=== PATIENT | male | born 1980 | race Caucasian/White ===

== ENCOUNTER 2023-02-07 14:42 | Emergency (ER) | payer SELFPAY ==
[2023-02-07] MEDS ORDERED: Sodium Chloride 0.9% 10 ML Syringe FLUSH PRN (15:26)
[2023-02-07] MEDS ORDERED: HYDROmorphone 0.5 MG/0.5 ML Syringe IVPUSH ONE (16:03)
[2023-02-07] MEDS ORDERED: Sodium Chloride 0.9% 1,000 ML IV STA (16:03)
[2023-02-07] MEDS ORDERED: Ondansetron 4 MG/2 ML SDV IVPUSH ONE (16:03)
[2023-02-07 16:06] LABS: BASOPHILS ABSOLUTE AUTO 0.02 K/mm3 (0.01-0.08); BASOPHILS PERCENT AUTO 0.2 % (0.1-1.2); EOSINOPHILS ABSOLUTE AUTO 0.08 K/mm3 (0.04-0.54); EOSINOPHILS PERCENT AUTO 0.9 (0.8-7.0); HEMATOCRIT 47.8 % (40.1-51.0); HEMOGLOBIN 16.4 gm/dl (13.7-17.5); IMMATURE GRAN ABSOLUTE AUTO 0.02 K/mm3 (0.00-0.10); IMMATURE GRAN PERCENT AUTO 0.2 % (<=1.0); LYMPHOCYTES ABSOLUTE AUTO 1.87 K/mm3 (1.32-3.57); LYMPHOCYTES PERCENT AUTO 20.5 % (21.8-53.1); MEAN CORPUSCULAR HEMOGLOBIN 29.2 pg (25.7-32.2); MEAN CORPUSCULAR HGB CONC 34.3 g/dl (32.2-35.5); MEAN CORPUSCULAR VOLUME 85.1 fl (79.0-92.2); MEAN PLATELET VOLUME 10.8 fl (9.4-12.3); MONOCYTES ABSOLUTE AUTO 0.72 K/mm3 (0.30-0.82); MONOCYTES PERCENT AUTO 7.9 % (5.3-12.2); NEUTROPHILS ABSOLUTE AUTO 6.39 K/mm3 (1.78-5.38); NEUTROPHILS PERCENT AUTO 70.3 % (34.0-67.9); PLATELET COUNT,PLT 207 K/mm3 (163-337); RED BLOOD CELL COUNT 5.62 M/mm3 (4.63-6.08)
[2023-02-07] MEDS ORDERED: Iopamidol 612 MG/ML 30 ML SDV IVPUSH ONE (16:17)
[2023-02-07] MEDS ORDERED: Iopamidol 612 MG/ML 100 ML Bottle IVPUSH ONE (16:17)
[2023-02-07] MEDS ORDERED: Sodium Chloride 0.9% 10 ML Syringe FLUSH ONE (16:17)
[2023-02-07 16:32] LABS: A/G RATIO 1.3 (1-2); ALBUMIN 4.1 g/dl (3.4-5.0); ANION GAP 11.5 (5-15); BILIRUBIN TOTAL 0.5 mg/dL (0.2-1.0); C-REACTIVE PROTEIN 0.2 mg/dL (<1.0); CALCIUM 8.9 mg/dL (8.5-10.1); EST CRCL DRUG DOSING (CG) 102.49 mL/min; POTASSIUM,K 3.5 mEq/L (3.5-5.1); PROTEIN TOTAL,TP 7.3 g/dl (6.4-8.2)
[2023-02-07 18:11] LABS: APPEARANCE,URINE CLEAR (Clear); BILIRUBIN,URINE NEGATIVE (Negative); COLOR,URINE YELLOW (Yellow); GLUCOSE,URINE NEGATIVE (Negative); KETONES,URINE NEGATIVE (Negative); LEUKOCYTE ESTERASE,URINE NEGATIVE (Negative); NITRITE,URINE NEGATIVE (Negative); OCCULT BLOOD,URINE NEGATIVE (Negative); PROTEIN,URINE 1+ (Negative)
[2023-02-07 18:19] LABS: AMORPHOUS SEDIMENT,URINE FEW /hpf (NOT SEEN); BACTERIA,URINE FEW /hpf (FEW); MUCUS,URINE FEW /hpf (FEW); RBC,URINE 0-5 /hpf (0-5); SQUAMOUS EPITHELIAL CELLS,UR 0-5 /hpf (0-5); WBC,URINE 0-5 /hpf (0-5)
== END 2023-02-07 18:45 | disposition home or self-care (01) ==
LOC: JD.ED 14:42
DX: R10.9 Unspecified abdominal pain (principal); F17.210 Nicotine dependence, cigarettes, uncomplicated; Z88.8 Allergy status to other drugs, medicaments and biological substances
CPT/HCPCS: 36415; 74177; 80053; 81001; 83690; 85025; 86140; 96374; 96375; 99284; J1170; J2405; J3490; J7030; Q9967

== ENCOUNTER 2023-02-18 15:02 | Emergency (ER) | payer SELFPAY ==
[2023-02-18] MEDS ORDERED: HYDROmorphone 1 MG/ML Syringe IM ONE (16:06)
== END 2023-02-18 16:30 | disposition home or self-care (01) ==
LOC: JD.ED 15:02
DX: S22.42XA Multiple fractures of ribs, left side, initial encounter for closed fracture (principal); F17.210 Nicotine dependence, cigarettes, uncomplicated; Z79.899 Other long term (current) drug therapy; Z88.8 Allergy status to other drugs, medicaments and biological substances; W19.XXXA Unspecified fall, initial encounter
CPT/HCPCS: 71101; 73030; 96372; 99283; J1170

== ENCOUNTER 2023-02-23 09:51 | Day surgery (SDC) | payer SELFPAY ==
[~2023-02-23 09:51] MED LIST: Sodium Chloride 0.9% 10 ML Syringe FLUSH PRN; Sodium Chloride 0.9% 10 ML Syringe FLUSH SCH
[2023-02-23] MEDS: Lactated Ringers 1,000 ML IV SCH ×2 (10:25→14:31)
[2023-02-23] MEDS ORDERED: Ondansetron 4 MG/2 ML SDV IVPUSH PRN ×2 (13:15→14:25)
[2023-02-23] MEDS ORDERED: Midazolam 1 MG/ML 2 ML SDV ONE (13:29)
[2023-02-23] MEDS ORDERED: Propofol 200 MG/20 ML SDV ONE ×2 (13:30→13:32)
[2023-02-23] MEDS ORDERED: Lidocaine 1% 2 ML ONE (13:30)
[2023-02-23] MEDS ORDERED: Bupivacaine 0.5% 10 ML SDV ONE (14:14)
[2023-02-23] MEDS ORDERED: Bupivacaine 0.5% 30 ML SDV ONE (14:15)
[2023-02-23] MEDS ORDERED: Ketamine 500 mg/10 ML MDV ONE (14:32)
== END 2023-02-23 16:10 | disposition home or self-care (01) ==
LOC: JD.SDS 09:51
PROVIDERS: ATTEND Surgery
DX: K29.50 Unspecified chronic gastritis without bleeding (principal); K20.90 Esophagitis, unspecified without bleeding; K44.9 Diaphragmatic hernia without obstruction or gangrene; K22.89 Other specified disease of esophagus; F41.9 Anxiety disorder, unspecified; F17.210 Nicotine dependence, cigarettes, uncomplicated; R00.2 Palpitations; F12.10 Cannabis abuse, uncomplicated; F14.10 Cocaine abuse, uncomplicated; Z88.8 Allergy status to other drugs, medicaments and biological substances; Z79.899 Other long term (current) drug therapy
CPT/HCPCS: 43239; J2250; J2704; J3490; J7120; 00813

== ENCOUNTER 2023-05-09 22:02 | Emergency (ER) | payer SELFPAY ==
[2023-05-09 23:29] LABS: BASOPHILS PERCENT AUTO 0.3 % (0.0-1.0); EOSINOPHILS ABSOLUTE AUTO 0.2 K/mm3 (0.0-0.4); EOSINOPHILS PERCENT AUTO 1.7 % (0.0-6.0); HEMATOCRIT 52.8 % (42.0-52.0); HEMOGLOBIN 18.2 gm/dl (14.0-18.0); IMMATURE GRAN ABSOLUTE AUTO 0.02 K/mm3 (0.00-0.05); IMMATURE GRAN PERCENT AUTO 0.2 % (0.0-0.4); LYMPHOCYTES PERCENT AUTO 32.2 % (24.0-44.0); MEAN CORPUSCULAR HEMOGLOBIN 29.4 pg (28.0-32.0); MEAN CORPUSCULAR HGB CONC 34.5 g/dl (32.0-36.0); MEAN CORPUSCULAR VOLUME 85.4 fl (83.0-99.0); MEAN PLATELET VOLUME 9.9 fl (9.4-12.4); MONOCYTES ABSOLUTE AUTO 0.7 K/mm3 (0.0-0.8); MONOCYTES PERCENT AUTO 7.9 % (0.0-8.0); NEUTROPHILS ABSOLUTE AUTO 5.4 K/mm3 (1.8-7.7); NEUTROPHILS PERCENT AUTO 57.7 % (41.0-71.0); PLATELET COUNT,PLT 236 K/mm3 (150-400); RED BLOOD CELL COUNT 6.18 M/mm3 (4.52-5.90); WHITE BLOOD CELL COUNT,WBC 9.33 K/mm3 (3.9-11.3)
[2023-05-09 23:42] LABS: APPEARANCE,URINE CLEAR (Clear); BILIRUBIN,URINE 1+ (Negative); COLOR,URINE DARK YELLOW (Yellow); GLUCOSE,URINE NEGATIVE (Negative); KETONES,URINE NEGATIVE (Negative); LEUKOCYTE ESTERASE,URINE NEGATIVE (Negative); NITRITE,URINE NEGATIVE (Negative); OCCULT BLOOD,URINE NEGATIVE (Negative); PROTEIN,URINE 1+ (Negative)
[2023-05-09 23:50] LABS: BACTERIA,URINE FEW /hpf (FEW); EPITHELIAL CELLS,URINE 0-5 /hpf (0-5); MUCUS,URINE MODERATE /hpf (FEW); RBC,URINE 0-5 /hpf (0-5); WBC,URINE 0-5 /hpf (0-5)
[2023-05-09 23:54] LABS: BARBITURATE SCREEN,URINE NEGATIVE (CUTOFF=200); BENZODIAZEPINES SCREEN,URINE PRESUMPTIVE POSITIVE (CUTOFF=150); BUPRENORPHINE SCREEN,URINE NEGATIVE (CUTOFF=10); METHADONE SCREEN, URINE NEGATIVE (CUT0FF=200); METHAMPHETAMINES SCREEN, URINE PRESUMPTIVE POSITIVE (CUTOFF=500); OXYCODONE SCREEN,URINE NEGATIVE (CUT0FF=100); PROPOXYPHENE SCREEN,URINE NEGATIVE (CUTOFF=300); THC SCREEN,URINE 20 NG/ML PRESUMPTIVE POSITIVE (CUTOFF=50)
[2023-05-09 23:56] LABS: AMPHETAMINES SCREEN, URINE PRESUMPTIVE POSITIVE (CUTOFF=500)
[2023-05-09 23:57] LABS: A/G RATIO 1.2 (1-2); ALBUMIN 4.4 g/dl (3.4-5.0); ANION GAP 12.9 (5-15); BILIRUBIN TOTAL 0.8 mg/dL (0.2-1.0); BUN/CREATININE RATIO 12.7 (14-18); CALCIUM 9.3 mg/dL (8.5-10.1); CREATININE 1.1 mg/dL (0.7-1.3); EST CRCL DRUG DOSING (CG) 81.79 mL/min; POTASSIUM,K 3.9 mEq/L (3.5-5.1); PROTEIN TOTAL,TP 8.2 g/dl (6.4-8.2)
== END 2023-05-10 02:05 | disposition home or self-care (01) ==
LOC: JD.ED 22:02
DX: S06.0XAA Concussion with loss of consciousness status unknown, initial encounter (principal); Z88.8 Allergy status to other drugs, medicaments and biological substances; Y08.02XA Assault by strike by baseball bat, initial encounter
CPT/HCPCS: 36415; 70450; 70450-26; 70486; 70486-26; 72125; 72125-26; 72128; 72128-26; 73030-26-LT; 73030-LT; 80053; 80306; 80307; 81001; 85025; 99284; 99285

== ENCOUNTER 2023-07-14 23:08 | Emergency (ER) | payer SELFPAY ==
[2023-07-15] MEDS ORDERED: Ibuprofen 800 MG Tab PO ONE (00:11)
[2023-07-15] MEDS ORDERED: Acetaminophen 325 MG Tab PO ONE (00:11)
== END 2023-07-15 00:33 | disposition home or self-care (01) ==
LOC: JD.ED 23:08
DX: S83.91XA Sprain of unspecified site of right knee, initial encounter (principal); I10 Essential (primary) hypertension; J45.909 Unspecified asthma, uncomplicated; F17.210 Nicotine dependence, cigarettes, uncomplicated; Z88.6 Allergy status to analgesic agent; W00.0XXA Fall on same level due to ice and snow, initial encounter
CPT/HCPCS: 73562; 99283; A9270

== ENCOUNTER 2023-07-16 22:50 | Emergency (ER) | payer SELFPAY ==
[2023-07-16] MEDS ORDERED: Acetaminophen/HYDROcodone 325-5 MG Tab PO ONE (23:03)
[2023-07-16] MEDS ORDERED: Ketorolac 60 MG/2 ML SDV IM ONE (23:05)
== END 2023-07-16 23:28 | disposition home or self-care (01) ==
LOC: JD.ED 22:50
DX: M25.561 Pain in right knee (principal); J45.909 Unspecified asthma, uncomplicated; Z79.899 Other long term (current) drug therapy; Z86.16 Personal history of COVID-19; Z88.8 Allergy status to other drugs, medicaments and biological substances
CPT/HCPCS: 96372; 99283; A9270; J1885